=== PATIENT | male | born 1950 | race Two or more races ===

== ENCOUNTER 2018-03-27 03:57 | Inpatient (IN) | payer OTHER ==
[~2018-03-27] VITALS: Ht 180.3 cm; Wt 108.9 kg
[2018-03-27] MEDS ORDERED: LABETALOL HCL200 MG (04:15)
[2018-03-27] MEDS ORDERED: GLIPIZIDE XL10 MG (04:16)
[2018-03-27] MEDS ORDERED: LISINOPRIL20 MG (04:16)
[2018-03-27] MEDS ORDERED: HYDRALAZINE HCL50 MG (04:16)
[2018-03-27] MEDS ORDERED: [UNRECOGNIZED DRUG - OTHER] (04:16)
[2018-03-27] MEDS ORDERED: ATORVASTATIN CA10 MG (04:17)
[2018-04-02] MEDS ORDERED: Lipitor 10MG TABLET PO (16:13)
[2018-04-02] MEDS ORDERED: HYDRALAZINE HCL50 MG PO (16:13)
[2018-04-02] MEDS ORDERED: Coreg 3.125MG TABLET PO (16:13)
[2018-04-02] MEDS ORDERED: AVAPRO150 MG PO (16:13)
[2018-04-02] MEDS ORDERED: NIFEDIPINE ER60 MG PO (16:13)
== END 2018-04-02 19:09 | disposition home or self-care (01) | DRG 291 ==
LOC: ER 03:57 → ICU 17:55 → ICU-2 17:55 → ICU 20:49 → SURH 04-01 20:23
PROC: 3E0F7GC Introduction of Other Therapeutic Substance into Respiratory Tract, Via Natural or Artificial Opening (ICD-10-PCS; principal; 2018-03-27)
PROC: 4A033R1 Measurement of Arterial Saturation, Peripheral, Percutaneous Approach (ICD-10-PCS; 2018-03-27)
PROC: B246ZZZ Ultrasonography of Right and Left Heart (ICD-10-PCS; 2018-03-27)
DX: I13.0 Hypertensive heart and chronic kidney disease with heart failure and stage 1 through stage 4 chronic kidney disease, or unspecified chronic kidney disease (principal); J18.9 Pneumonia, unspecified organism; N17.8 Other acute kidney failure; B37.0 Candidal stomatitis; E11.22 Type 2 diabetes mellitus with diabetic chronic kidney disease; N18.1 Chronic kidney disease, stage 1; I50.9 Heart failure, unspecified; I16.0 Hypertensive urgency; R09.02 Hypoxemia; I43 Cardiomyopathy in diseases classified elsewhere; Z86.73 Personal history of transient ischemic attack (TIA), and cerebral infarction without residual deficits; Z66 Do not resuscitate

== ENCOUNTER 2019-08-19 13:54 | Emergency (ER) | payer OTHER ==
[~2019-08-19] VITALS: Ht 175.3 cm; Wt 105.7 kg
[~2019-08-19 13:54] MED LIST: ATORVASTATIN CA10 MG; AVAPRO150 MG PO; Coreg 3.125MG TABLET PO; GLIPIZIDE XL10 MG; HYDRALAZINE HCL50 MG; HYDRALAZINE HCL50 MG PO; LABETALOL HCL200 MG; LISINOPRIL20 MG; Lipitor 10MG TABLET PO; NIFEDIPINE ER60 MG PO; [UNRECOGNIZED DRUG - OTHER]
== END 2019-08-19 18:21 | disposition home or self-care (01) ==
LOC: ER 13:54
DX: J06.9 Acute upper respiratory infection, unspecified (principal); G44.209 Tension-type headache, unspecified, not intractable

== ENCOUNTER 2024-08-10 18:19 | Emergency (ER) | payer OTHER ==
[~2024-08-10] VITALS: Ht 185.4 cm; Wt 104.3 kg
[2024-08-10] MEDS ORDERED: ELIQUIS5 MG (18:25)
[2024-08-10] MEDS ORDERED: CARVEDILOL ER40 MG (18:25)
[2024-08-10] MEDS ORDERED: AMLODIPINE-OLM1 EAC2 (18:25)
[2024-08-10] MEDS ORDERED: FARXIGA10 MG (18:25)
[2024-08-10] MEDS ORDERED: ROSUVASTATIN CA20 MG PO (18:25)
[2024-08-10] MEDS ORDERED: FUROSEMIDE20 MG (18:26)
[2024-08-10] MEDS ORDERED: RYBELSUS14 MG (18:26)
[2024-08-10] MEDS ORDERED: AMIODARONE HCL100 MG (18:26)
[2024-08-10] MEDS ORDERED: 0.9 % SODIUM CHLORIDE 1,000 ML IV ONE (19:00)
[2024-08-10] MEDS ORDERED: ASPIRIN 325 MG TABLET PO ONE (19:00)
[2024-08-10] MEDS ORDERED: FAMOtidine 10 MG/ML (4ML VIAL) IV PUSH ONE (19:00)
[2024-08-10] MEDS ORDERED: FAMOTIDINE/PF 20 MG/2 ML VIAL ONE (19:04)
[2024-08-10] MEDS ORDERED: ASPIRIN 325 MG TABLET.EC PO ONE (19:09)
[2024-08-10 19:41] LABS: HEMATOCRIT 42.1 % (39.0-48.0); HEMOGLOBIN 13.8 g/dL (13-16.00); MEAN CELL VOLUME 90.3 fL (80.0-100.00); MEAN CORPUSCULAR HEMOGLOBIN 29.6 pg (27.00-32.0); MEAN CORPUSCULAR HGB CONC 32.8 g/dl (32.0-36.0); PLATELET COUNT 266 K/uL (150-450); RED BLOOD COUNT 4.66 M/uL (4.00-6.00); RED CELL DISTRIBUTION WIDTH 14.9 % (11.5-14.5)
[2024-08-10 20:06] LABS: INR 1.08; PARTIAL THROMBOPLASTIN TIME 26.2 SECONDS (22.0-34.0); PROTHROMBIN TIME 11.7 SECONDS (9.0-11.5)
[2024-08-10 20:18] LABS: ALBUMIN 3.7 gm/dL (3.4-5.0); BILIRUBIN TOTAL 0.37 mg/dL (0.3-1.2); CREATININE SERUM 3.34 mg/dL (0.70-1.30); GFR 18.21; POTASSIUM 3.28 mEq/L (3.5-5.1); TOTAL PROTEIN 6.7 gm/dL (6.4-8.2)
[2024-08-10 21:54] LABS: URINE APPEARANCE Cloudy; URINE BILIRRUBIN Negative (NEGATIVE); URINE BLOOD Negative; URINE COLOR Yellow; URINE KETONE Negative (NEGATIVE); URINE LEUKOCYTE Negative; URINE NITRATE Negative; URINE UROBILINOGEN 0.2 E.U./dl
[2024-08-10 22:03] LABS: URINE RBC 3.2 uL (0.0-20.8)
[2024-08-10 22:07] LABS: URINE BACTERIA 2.4 uL (0.0-1933); URINE CAST 0.29 uL (0.0-1.40); URINE EPITHELIAL CELLS 0.9 uL (0.0-38.8); URINE GLUCOSE >=1000 MG/DL (NEGATIVE); URINE PROTEIN 300 (NEGATIVE); URINE WBC 1.1 uL (0.0-23.2)
== END 2024-08-10 22:52 | disposition home or self-care (01) ==
LOC: ER 18:22
PROVIDERS: General Practice
DX: R07.89 Other chest pain (principal); I10 Essential (primary) hypertension; E11.9 Type 2 diabetes mellitus without complications